=== PATIENT | female | born 1950 | race Caucasian/White ===

== ENCOUNTER 2020-04-01 14:30 | Inpatient (IN) | payer MEDICARE, OTHER ==
[~2020-04-01] VITALS: Ht 175.3 cm; Wt 109.4 kg
[2020-04-01] MEDS ORDERED: LORazepam 2 MG/ML, 1ML IVPush ONE ×2 (15:30→18:00)
[2020-04-01] MEDS ORDERED: SODIUM CHLORIDE FLUSH 10ML SYR IVF ONE (15:30)
[2020-04-01] MEDS ORDERED: ACETAMINOPHEN 325 MG TABLET PO ONE (15:30)
[2020-04-01] MEDS ORDERED: SODIUM CHLORIDE 0.9% 1,000ML IVBOLUS ONE (15:30)
--- NOTE | 2020-04-01 15:32 | NUR ---
PT BIB EMS FOR GLF TO LEFT RIBS. DENIES LOC OR HITTING HEAD. PT STATES SHE WAS UNABLE TO GET UP AND CRAWLED TO ROOM. DENIES CP, SLIGHT SOB. NO GI./V/N. HX OF FALLS. WAS DC RECENTLY FROM [facility]. HX OF CELLULIES AND SKIN GRAFTS TO RIGHT LEG. CARDIAC [place] APPLIED. PT ETOH, TREMULOUS. IV ESTABLISHED PER EMS
[2020-04-01] MEDS ORDERED: ACETAMINOPHEN 325 MG TABLET ONE (15:36)
[2020-04-01] MEDS ORDERED: LORazepam 2 MG/ML, 1ML ONE ×2 (15:36→17:38)
[2020-04-01 15:38] LABS: MEAN CORPUSCULAR HEMOGLOBIN 36.9 pg (27.0-34.8); MEAN CORPUSCULAR HGB CONC 32.7 g/dL (32.4-35.8); MEAN CORPUSCULAR VOLUME 112.9 fL (80-100); MEAN PLATELET VOLUME 8.2 fL (7.4-10.4); PLATELET COUNT 356 x10^3/uL (130-400); RED BLOOD COUNT 3.22 x10^6/uL (3.82-5.3); RED CELL DISTRIBUTION WIDTH 15.8 % (9.6-15.2)
[2020-04-01 15:51] LABS: ALANINE AMINOTRANSFERASE 20 U/L (12-78); ALBUMIN 1.8 g/dL (3.4-5.0); ANION GAP 5 mmol/L (5-15); CALCIUM 7.7 mg/dL (8.5-10.1); CHLORIDE 110 mmol/L (98-107)
[2020-04-01 15:52] LABS: <PLATELET ESTIMATE> ADEQUATE; <PLT MORPHOLOGY> NORMAL PLT MORPH; ANISOCYTOSIS 1+; BASOPHILS # (AUTO) 0.09 x10^3/uL (0-0.1); BASOPHILS % (AUTO) 1 % (0-1); EOSINOPHILS # (AUTO) 0.07 x10^3/uL (0-0.4); EOSINOPHILS % (AUTO) 1 % (1-7); LYMPHOCYTES # (AUTO) 1.18 x10^3/uL (1-3.4); LYMPHOCYTES % (AUTO) 14 % (22-44); MD MORPH REVIEW ONLY; MONOCYTES # (AUTO) 0.82 x10^3/uL (0.2-0.8); MONOCYTES % (AUTO) 10 % (2-9); NEUTROPHILS # (AUTO) 6.11 x10^3/uL (1.8-6.8); NEUTROPHILS % (AUTO) 74 % (42-75)
[2020-04-01 15:55] LABS: ALKALINE PHOSPHATASE 106 U/L (45-117); CREATINE KINASE, TOTAL 310 U/L (26-192); TOTAL PROTEIN 5.2 g/dL (6.4-8.2); TROPONIN I < 0.015 ng/mL (0.000-0.045)
[2020-04-01] MEDS ORDERED: ONDANSETRON 2MG/ML, 2ML IVPush ONE (16:00)
[2020-04-01] MEDS ORDERED: HYDROmorphone 1 MG/ML, 1ML INJ IV ONE (16:00)
--- NOTE | 2020-04-01 16:23 | NUR ---
PT RESTING, MEDICATED PER ORDERS. GIVEN WARMER UNDER BLANKET. VSS
[2020-04-01] MEDS ORDERED: GABA600T7 PO (16:44)
[2020-04-01] MEDS ORDERED: FURO40TA6 PO (16:44)
[2020-04-01] MEDS ORDERED: LISI5TAB7 PO (16:47)
[2020-04-01] MEDS ORDERED: LEVO112T2 PO (16:47)
[2020-04-01] MEDS ORDERED: MIRT-34 PO (16:47)
[2020-04-01] MEDS ORDERED: OMEP20CA20 PO (16:47)
[2020-04-01] MEDS ORDERED: POTA10CA PO (16:47)
--- NOTE | 2020-04-01 17:02 | NUR ---
PT TO CT.
--- NOTE | 2020-04-01 17:36 | NUR ---
PT HR 140 SUSTAINED. PT WITHDRAWING FROM [place]
--- NOTE | 2020-04-01 18:06 | NUR ---
PT RESPOSITIONED. STRAIT CATH UA OBTAINED W ASSISTANCE BY [employer]. HR 140 MD AWARE. PT RESTING COMFORTABLE W CALL LIGHT IN REACH
[2020-04-01 18:20] LABS: MICROSCOPIC INDICATED
--- NOTE | 2020-04-01 18:50 | NUR ---
REPORT TO YESY
[2020-04-01] MEDS ORDERED: CEFTRIAXONE PMX 1GM/50ML 50 ML IV ONE (19:00)
--- NOTE | 2020-04-01 19:07 | NUR ---
UPDATED ON PTS HR.
[2020-04-01] MEDS ORDERED: CEFTRIAXONE PMX 1GM/50ML 50 ML ONE (19:14)
[2020-04-01] MEDS ORDERED: LABETALOL 5MG/ML, 20ML IVPush PRN (19:30)
[2020-04-01] MEDS ORDERED: LORazepam 2 MG/ML, 1ML IV PRN ×5 (19:30)
[2020-04-01] MEDS ORDERED: HEPARIN 5,000 UNITS/ML, 1ML SQ SCH (19:30)
--- NOTE | 2020-04-01 19:38 | NUR ---
MED JO ANN FROM PHARMACY.
[2020-04-01] MEDS ORDERED: HEPARIN 5,000 UNITS/ML, 1ML ONE (20:04)
[2020-04-01] MEDS ORDERED: MAGNESIUM SULFATE IV ONE (20:30)
[2020-04-01] MEDS ORDERED: THIAMINE IV ONE (20:30)
[2020-04-01] MEDS ORDERED: [UNRECOGNIZED DRUG - OTHER] IV ONE (20:30)
[2020-04-01] MEDS ORDERED: POTASSIUM CHLORIDE IV ONE (20:30)
[2020-04-01] MEDS ORDERED: FOLIC ACID IV ONE (20:30)
--- NOTE | 2020-04-01 20:32 | NUR ---
PT TO CT.
--- NOTE | 2020-04-01 20:36 | NUR ---
MED JO ANN FROM PHARMACY.
--- NOTE | 2020-04-01 20:40 | NUR ---
HOSPITAL BED REQ.
[2020-04-01] MEDS ORDERED: OMNIPAQUE 350 MG/ML, 75ML BOTTLE ONE (20:44)
[2020-04-01] MEDS ORDERED: MIRTAZAPINE 15 MG TABLET ONE (20:53)
[2020-04-01] MEDS ORDERED: FUROSEMIDE 20 MG TABLET ONE (20:54)
[2020-04-01] MEDS: FUROSEMIDE 20 MG TABLET PO SCH (21:10)
[2020-04-01] MEDS: GABAPENTIN 100 MG CAPSULE PO SCH (21:10)
[2020-04-01] MEDS: MIRTAZAPINE 15 MG TABLET PO SCH (21:10)
[2020-04-01] MEDS ORDERED: HEPARIN 5,000 UNITS/ML, 1ML IV ONE (21:30)
--- NOTE | 2020-04-01 21:37 | NUR ---
2ND PIV STARTED AND BLUE TOP DRAWN AND SENT TO LAB.
--- NOTE | 2020-04-01 21:54 | NUR ---
REPORT GIVEN TO CONCHIS LEONARD. PT IS READY FOR TRANSPORT AT THIS TIME. IVF INFUSING APPROPRIATELY.
[2020-04-01] MEDS ORDERED: MELATONIN 5 MG TABLET PO ONE (22:30)
[2020-04-02] MEDS: HEPARIN 25,000 UNITS/250ML PMX 250 ML IV PRN (00:21)
[2020-04-02] MEDS ORDERED: LEVOTHYROXINE 112 MCG TABLET PO SCH (06:00)
[2020-04-02 06:06] LABS: CHLORIDE 111 mmol/L (98-107)
[2020-04-02 06:07] LABS: MEAN CORPUSCULAR HEMOGLOBIN 37.3 pg (27.0-34.8); MEAN CORPUSCULAR HGB CONC 32.9 g/dL (32.4-35.8); MEAN CORPUSCULAR VOLUME 113.3 fL (80-100); MEAN PLATELET VOLUME 8.4 fL (7.4-10.4); PLATELET COUNT 285 x10^3/uL (130-400); RED BLOOD COUNT 3.05 x10^6/uL (3.82-5.3); RED CELL DISTRIBUTION WIDTH 15.9 % (9.6-15.2)
[2020-04-02 06:18] LABS: ANION GAP 7 mmol/L (5-15); CALCIUM 7.7 mg/dL (8.5-10.1); CREATININE 0.52 mg/dL (0.55-1.02)
[2020-04-02 06:37] LABS: LYMPHOCYTES % (AUTO) 21 % (22-44); NEUTROPHILS % (AUTO) 62 % (42-75)
[2020-04-02 06:38] LABS: BASOPHILS # (AUTO) 0.04 x10^3/uL (0-0.1); BASOPHILS % (AUTO) 1 % (0-1); EOSINOPHILS # (AUTO) 0.32 x10^3/uL (0-0.4); EOSINOPHILS % (AUTO) 5 % (1-7); LYMPHOCYTES # (AUTO) 1.26 x10^3/uL (1-3.4); MD SCAN; MONOCYTES # (AUTO) 0.74 x10^3/uL (0.2-0.8); MONOCYTES % (AUTO) 12 % (2-9); NEUTROPHILS # (AUTO) 3.79 x10^3/uL (1.8-6.8)
[2020-04-02 06:58] VITALS: BP 107/75
[2020-04-02] MEDS: HEPARIN 5,000 UNITS/ML, 1ML IV PRN ×2 (07:36→15:53)
[2020-04-02] MEDS: LISINOPRIL 5 MG TABLET PO SCH (07:38)
[2020-04-02] MEDS: FUROSEMIDE 20 MG TABLET PO SCH (07:38)
[2020-04-02] MEDS: OMEPRAZOLE 20 MG CAPSULE.DR PO SCH (07:38)
[2020-04-02] MEDS: POTASSIUM CHLORIDE 10 MEQ TABLET.ER PO SCH (07:39)
[2020-04-02] MEDS: SENNA/DOCUSATE TABLET PO SCH (07:40)
[2020-04-02] MEDS ORDERED: VANCOMYCIN PER PHARMACY MC PRN (10:30)
[2020-04-02] MEDS ORDERED: PHARMACOKINETIC CONSULTATION MC ONE (11:00)
[2020-04-02] MEDS ORDERED: PHARMACOKINETIC MONITORING MC PRN (11:00)
[2020-04-02] MEDS ORDERED: VANCOMYCIN 2,000 MG in SODIUM CHLORIDE 0.9% 500 ML IV ONE (11:30)
[2020-04-02 15:00] VITALS: BP 90/56
[2020-04-02] MEDS: ACETAMINOPHEN 325 MG TABLET PO PRN ×2 (16:06→20:45)
[2020-04-02 19:15] VITALS: BP 95/65
[2020-04-02] MEDS: GABAPENTIN 100 MG CAPSULE PO SCH (20:44)
[2020-04-02] MEDS: MIRTAZAPINE 15 MG TABLET PO SCH (20:44)
[2020-04-03] MEDS: HEPARIN 5,000 UNITS/ML, 1ML IV PRN (00:09)
[2020-04-03] MEDS: HEPARIN 25,000 UNITS/250ML PMX 250 ML IV PRN (00:11)
[2020-04-03] MEDS: CEFTRIAXONE PMX 1GM/50ML 50 ML IV SCH ×2 (00:47→21:49)
[2020-04-03 02:18] VITALS: BP 108/66
[2020-04-03] MEDS: LEVOTHYROXINE 75 MCG TABLET PO SCH (05:38)
[2020-04-03 07:48] LABS: MEAN CORPUSCULAR HEMOGLOBIN 36.1 pg (27.0-34.8); MEAN CORPUSCULAR HGB CONC 31.6 g/dL (32.4-35.8); MEAN PLATELET VOLUME 8.2 fL (7.4-10.4); PLATELET COUNT 303 x10^3/uL (130-400); RED CELL DISTRIBUTION WIDTH 16.3 % (9.6-15.2)
[2020-04-03 07:54] LABS: ANION GAP 4 mmol/L (5-15); CALCIUM 7.7 mg/dL (8.5-10.1); CHLORIDE 112 mmol/L (98-107); CREATININE 0.48 mg/dL (0.55-1.02)
[2020-04-03 08:22] LABS: BASOPHILS # (AUTO) 0.03 x10^3/uL (0-0.1); BASOPHILS % (AUTO) 1 % (0-1); EOSINOPHILS # (AUTO) 0.42 x10^3/uL (0-0.4); EOSINOPHILS % (AUTO) 7 % (1-7); LYMPHOCYTES # (AUTO) 1.26 x10^3/uL (1-3.4); LYMPHOCYTES % (AUTO) 20 % (22-44); MD SCAN; MONOCYTES % (AUTO) 11 % (2-9); NEUTROPHILS # (AUTO) 3.87 x10^3/uL (1.8-6.8); NEUTROPHILS % (AUTO) 62 % (42-75)
[2020-04-03 08:34] VITALS: BP 108/71
[2020-04-03] MEDS: OMEPRAZOLE 20 MG CAPSULE.DR PO SCH (08:45)
[2020-04-03] MEDS: POTASSIUM CHLORIDE 10 MEQ TABLET.ER PO SCH (08:46)
[2020-04-03] MEDS: LISINOPRIL 5 MG TABLET PO SCH (08:46)
[2020-04-03] MEDS: SENNA/DOCUSATE TABLET PO SCH (08:48)
[2020-04-03] MEDS ORDERED: LORazepam 1MG TABLET PO PRN (09:30)
[2020-04-03] MEDS ORDERED: LORazepam 0.5MG TABLET PO PRN (09:30)
[2020-04-03] MEDS: APIXABAN 5 MG TABLET PO SCH ×2 (10:22→21:49)
[2020-04-03] MEDS: KETOROLAC 30 MG/1 ML IVPush PRN ×2 (10:22→18:04)
[2020-04-03] MEDS: VANCOMYCIN 1,800 MG in SODIUM CHLORIDE 0.9% 250 ML IV SCH (12:40)
[2020-04-03 15:25] VITALS: BP 97/63
[2020-04-03 21:45] VITALS: BP 95/57
[2020-04-03] MEDS: GABAPENTIN 100 MG CAPSULE PO SCH (21:49)
[2020-04-03] MEDS: MIRTAZAPINE 15 MG TABLET PO SCH (21:49)
[2020-04-03] MEDS: ACETAMINOPHEN 325 MG TABLET PO PRN (21:50)
[2020-04-04 02:00] VITALS: BP 97/57
[2020-04-04] MEDS: LEVOTHYROXINE 75 MCG TABLET PO SCH (06:20)
[2020-04-04 06:49] LABS: MEAN CORPUSCULAR HEMOGLOBIN 36.6 pg (27.0-34.8); MEAN CORPUSCULAR HGB CONC 32.3 g/dL (32.4-35.8); MEAN CORPUSCULAR VOLUME 113.2 fL (80-100); MEAN PLATELET VOLUME 8.1 fL (7.4-10.4); PLATELET COUNT 272 x10^3/uL (130-400); RED CELL DISTRIBUTION WIDTH 15.9 % (9.6-15.2)
[2020-04-04 07:01] LABS: ANION GAP 5 mmol/L (5-15); CALCIUM 7.7 mg/dL (8.5-10.1); CHLORIDE 112 mmol/L (98-107); CREATININE 0.57 mg/dL (0.55-1.02)
[2020-04-04 07:18] LABS: BASOPHILS # (AUTO) 0.03 x10^3/uL (0-0.1); BASOPHILS % (AUTO) 1 % (0-1); EOSINOPHILS # (AUTO) 0.37 x10^3/uL (0-0.4); EOSINOPHILS % (AUTO) 6 % (1-7); LYMPHOCYTES # (AUTO) 1.51 x10^3/uL (1-3.4); LYMPHOCYTES % (AUTO) 26 % (22-44); MD SCAN; MONOCYTES # (AUTO) 0.76 x10^3/uL (0.2-0.8); MONOCYTES % (AUTO) 13 % (2-9); NEUTROPHILS # (AUTO) 3.19 x10^3/uL (1.8-6.8); NEUTROPHILS % (AUTO) 54 % (42-75)
[2020-04-04 07:53] VITALS: BP 111/69
[2020-04-04] MEDS: LISINOPRIL 5 MG TABLET PO SCH (07:56)
[2020-04-04] MEDS: POTASSIUM CHLORIDE 10 MEQ TABLET.ER PO SCH (07:56)
[2020-04-04] MEDS: OMEPRAZOLE 20 MG CAPSULE.DR PO SCH (07:56)
[2020-04-04] MEDS: APIXABAN 5 MG TABLET PO SCH ×2 (07:56→20:07)
[2020-04-04] MEDS: KETOROLAC 30 MG/1 ML IVPush PRN ×2 (07:56→16:20)
[2020-04-04] MEDS: SENNA/DOCUSATE TABLET PO SCH (07:56)
[2020-04-04] MEDS: METOCLOPRAMIDE 10MG TABLET PO PRN (10:30)
[2020-04-04] MEDS: VANCOMYCIN 1,800 MG in SODIUM CHLORIDE 0.9% 250 ML IV SCH (12:01)
[2020-04-04 13:40] VITALS: BP 112/71
[2020-04-04 18:54] VITALS: BP 109/68
[2020-04-04] MEDS: CEFTRIAXONE PMX 1GM/50ML 50 ML IV SCH (20:07)
[2020-04-04] MEDS: GABAPENTIN 100 MG CAPSULE PO SCH (20:07)
[2020-04-04] MEDS: MIRTAZAPINE 15 MG TABLET PO SCH (20:07)
[2020-04-05 01:02] VITALS: BP 118/71
[2020-04-05] MEDS: LEVOTHYROXINE 75 MCG TABLET PO SCH (06:01)
[2020-04-05 07:43] VITALS: BP 125/77
[2020-04-05] MEDS: POTASSIUM CHLORIDE 20 MEQ TAB.ER.PRT PO SCH (07:49)
[2020-04-05] MEDS: OMEPRAZOLE 20 MG CAPSULE.DR PO SCH (07:50)
[2020-04-05] MEDS: LISINOPRIL 5 MG TABLET PO SCH (07:50)
[2020-04-05] MEDS: APIXABAN 5 MG TABLET PO SCH ×2 (07:50→20:46)
[2020-04-05] MEDS: SENNA/DOCUSATE TABLET PO SCH (07:51)
[2020-04-05] MEDS: KETOROLAC 30 MG/1 ML IVPush PRN (10:15)
[2020-04-05] MEDS: VANCOMYCIN 1,800 MG in SODIUM CHLORIDE 0.9% 250 ML IV SCH (12:28)
[2020-04-05] MEDS: METOCLOPRAMIDE 10MG TABLET PO PRN (13:32)
[2020-04-05 14:44] VITALS: BP 124/75
[2020-04-05 19:50] VITALS: BP 129/78
[2020-04-05] MEDS: CEFTRIAXONE PMX 1GM/50ML 50 ML IV SCH (19:51)
[2020-04-05] MEDS: ACETAMINOPHEN 325 MG TABLET PO PRN (20:46)
[2020-04-05] MEDS: GABAPENTIN 100 MG CAPSULE PO SCH (20:46)
[2020-04-05] MEDS: MIRTAZAPINE 15 MG TABLET PO SCH (20:46)
[2020-04-06 00:04] VITALS: BP 112/71
[2020-04-06 05:04] LABS: MEAN CORPUSCULAR HEMOGLOBIN 36.7 pg (27.0-34.8); MEAN CORPUSCULAR HGB CONC 32.6 g/dL (32.4-35.8); MEAN CORPUSCULAR VOLUME 112.8 fL (80-100); MEAN PLATELET VOLUME 8.1 fL (7.4-10.4); PLATELET COUNT 288 x10^3/uL (130-400); RED BLOOD COUNT 2.74 x10^6/uL (3.82-5.3); RED CELL DISTRIBUTION WIDTH 15.9 % (9.6-15.2)
[2020-04-06 05:09] LABS: ANION GAP 3 mmol/L (5-15); CALCIUM 7.9 mg/dL (8.5-10.1); CHLORIDE 115 mmol/L (98-107)
[2020-04-06 05:11] LABS: CREATININE 0.41 mg/dL (0.55-1.02)
[2020-04-06 05:47] LABS: MD YES
[2020-04-06] MEDS: LEVOTHYROXINE 75 MCG TABLET PO SCH (05:51)
[2020-04-06 05:52] LABS: <PLATELET ESTIMATE> ADEQUATE; <PLT MORPHOLOGY> NORMAL PLT MORPH; EOS% (MANUAL) 9 % (1-7); LYMPH#(MANUAL) 1.71 x10^3/uL (1-3.4); LYMPHS% (MANUAL) 31 % (22-44); MONOS#(MANUAL) 0.17 x10^3/uL (0.3-2.7); MONOS% (MANUAL) 3 % (2-9); SEG#(MANUAL) 3.14 x10^3/uL (1.8-6.8); SEGS% (MANUAL) 57 % (42-75)
[2020-04-06 07:31] VITALS: BP 147/76
[2020-04-06] MEDS: SENNA/DOCUSATE TABLET PO SCH (09:00)
[2020-04-06] MEDS: APIXABAN 5 MG TABLET PO SCH (10:07)
[2020-04-06] MEDS: POTASSIUM CHLORIDE 20 MEQ TAB.ER.PRT PO SCH (10:07)
[2020-04-06] MEDS: LISINOPRIL 5 MG TABLET PO SCH (10:08)
[2020-04-06] MEDS: OMEPRAZOLE 20 MG CAPSULE.DR PO SCH (10:08)
[2020-04-06] MEDS: KETOROLAC 30 MG/1 ML IVPush PRN (10:13)
[2020-04-06] MEDS ORDERED: SULF1TAB24 PO (11:55)
[2020-04-06] MEDS ORDERED: APIX5TAB PO (11:55)
[2020-04-06] MEDS ORDERED: NAPR220C2 PO (12:13)
[2020-04-06] MEDS ORDERED: CIPR250T27 PO (12:13)
[2020-04-06 12:18] VITALS: BP 129/80
[2020-04-06] MEDS: VANCOMYCIN 1,800 MG in SODIUM CHLORIDE 0.9% 250 ML IV SCH (12:39)
[2020-04-10] MEDS ORDERED: APIXABAN 5 MG TABLET PO SCH (09:00)
== END 2020-04-06 13:35 | DRG 871 ==
LOC: ED 16:08 → EDIP 19:01 → 5SO 23:27 → 4EST 04-04 17:59 → 4WST 04-05 20:47
PROVIDERS: ADMIT Family Medicine; ATTEND Family Medicine
DX: A41.9 Sepsis, unspecified organism (principal); I26.99 Other pulmonary embolism without acute cor pulmonale; G92 Toxic encephalopathy; N39.0 Urinary tract infection, site not specified; L03.115 Cellulitis of right lower limb; L03.116 Cellulitis of left lower limb; R65.20 Severe sepsis without septic shock; B96.1 Klebsiella pneumoniae [K. pneumoniae] as the cause of diseases classified elsewhere; D53.9 Nutritional anemia, unspecified; E03.9 Hypothyroidism, unspecified; E87.6 Hypokalemia; I10 Essential (primary) hypertension; J32.9 Chronic sinusitis, unspecified; R62.7 Adult failure to thrive; F99 Mental disorder, not otherwise specified; R07.81 Pleurodynia; S20.219A Contusion of unspecified front wall of thorax, initial encounter; W18.30XA Fall on same level, unspecified, initial encounter; Y93.89 Activity, other specified; Y92.098 Other place in other non-institutional residence as the place of occurrence of the external cause; Y99.8 Other external cause status; Z91.040 Latex allergy status
CPT/HCPCS: 36415; 70450; 71250; 71275; 72125; 80048; 80053; 80202; 80307; 81001; 82550; 83735; 84100; 84439; 84443; 84484; 85025; 85379; 85520; 87040; 87070; 87077; 87086; 87186; 87205; 93005; G0378; J0696; J1644; J1885; J3370; J3411; J3475; J3480; Q9967; J2060; J7030; J7040; J7050